=== PATIENT | male | born 1995 | race Caucasian/White ===

== ENCOUNTER 2017-02-26 17:50 | Inpatient (IN) | payer BC, OTHER ==
[~2017-02-26] VITALS: Ht 188 cm; Wt 73.5 kg
[2017-02-26 21:30] VITALS: BP 136/68
--- NOTE | 2017-02-26 21:30 | NUR ---
INTAKE ASSESSMENT BP:136/68, HR: 60, RR:16, SpO2: 97%, T: 98.1 Ht:6'2" Wt:162lbs Pt is in stable condition and able to be admitted on the unit. Unit protocols regarding medications and vital signs Q4H were explained to pt. Pt verbalized understanding. Will monitor.
[2017-02-26 21:49] LABS: *AMPHETAMINE, URINE NEGATIVE (NEGATIVE); *BARBITURATE, URINE NEGATIVE (NEGATIVE); *CANNABINOID, URINE NEGATIVE (NEGATIVE); *COCCAINE, URINE NEGATIVE (NEGATIVE); *OPIATE, URINE POSITIVE (NEGATIVE); *PHENCYCLIDINE SCREEN,URINE NEGATIVE (NEGATIVE)
--- NOTE | 2017-02-26 22:00 | NUR ---
ADMISSION NOTE COWS:2 Pt arrived ambulatory from [facility] Intake to the third floor accompanied by a [employer] TEACHER at 2140. Pt is a 21 year old male patient admitted on 02/26/17 for Opiate dependency. Pt is full code with NKA. Pt denies any past medical history and denies having a PCP. He smoked 1 pack of ciagarettes daily since 16 years old. He denies a history of seizure. Pt reports his last sobriety was for 9 months from April 16, 2016 to December 2016. He reports he was at treatment center [facility] in [place], [place] for 90 days. Pt verbalized he is here for Heroin withdrawal. He describes his current use as: 1. Heroin (smoking) 1 gram daily for 2 months Last dose: 1 gram on 02/26/17 at 11am. Pt describes his withdrawal symptoms as hot/cold sweats, body aches, nausea, vomiting and insomnia. Upon assessment, pt is alert and oriented x4. Pt is calm and cooperative, speech is clear and audible. Heart rate is regular, pt denies chest pain or SOB. PERRLA, breathing is even and unlabored, lung sounds clear. Abdomen is soft and non distended, bowel sounds present in all quadrants. Last BM 02/24/17. Pt reports BM is regular. Pt's skin is warm, dry and intact. made aware of pt's admission. Pt oriented to room and unit. Pt safe with bed locked in lowest position, side rails up x2 and call light within reach. Will continue to monitor.
[2017-02-26] MEDS ORDERED: MAG HYDROX/AL HYDROX/SIMETH 30 ML LIQUID UDC PO PRN (23:00)
[2017-02-26] MEDS ORDERED: ACETAMINOPHEN 325 MG TABLET PO PRN (23:00)
[2017-02-26] MEDS ORDERED: MIRALAX 17 GM POWD.PACK PO PRN (23:00)
[2017-02-26] MEDS ORDERED: BUPRENORPHINE HCL 2 MG TAB.SUBL SL PRN (23:00)
[2017-02-26] MEDS ORDERED: LOPERAMIDE HCL 2 MG CAPSULE PO PRN ×2 (23:00)
[2017-02-26] MEDS ORDERED: ONDANSETRON 4 MG/2 ML VIAL IM PRN (23:00)
[2017-02-26] MEDS ORDERED: MAGNESIUM HYDROXIDE 30 ML LIQUID UDC PO PRN (23:00)
[2017-02-26] MEDS ORDERED: DICYCLOMINE HCL 20 MG TABLET PO PRN (23:00)
[2017-02-26] MEDS ORDERED: ONDANSETRON ODT 4 MG TAB.RAPDIS SL PRN (23:00)
[2017-02-26] MEDS ORDERED: CLONIDINE HCL 0.1 MG TABLET ONE (23:06)
[2017-02-26] MEDS ORDERED: HYDROXYZINE PAMOATE 25 MG CAPSULE ONE (23:06)
[2017-02-26] MEDS: METHOCARBAMOL 750 MG TABLET PO PRN (23:06)
[2017-02-26] MEDS: CLONIDINE HCL 0.1 MG TABLET PO PRN (23:07)
[2017-02-26] MEDS: HYDROXYZINE PAMOATE 25 MG CAPSULE PO PRN (23:07)
--- NOTE | 2017-02-26 23:07 | NUR ---
PRN CLONIDINE/VISTARIL/ROBAXIN Pt complains of anxiety/agitation, restlessness and body aches /10. PRN Clonidine, Vistaril and Robaxin administered as ordered. Breathing is even and unlabored, respirations 16. Safety measures in place. Will monitor effectiveness of medications.
[2017-02-26] MEDS ORDERED: METHOCARBAMOL 750 MG TABLET ONE (23:11)
[2017-02-27] VITALS: BP 128/74
--- NOTE | 2017-02-27 00:07 | NUR ---
PRN CLONIDINE/VISTARIL/ROBAXIN REASSESSMENT PRN medications effective. Pt is lying in bed with eyes closed noted to be asleep. Respirations 16, breathing even and unlabored. Safety measures in place. Will continue to monitor.
[2017-02-27 00:11] LABS: BASOPHILS # (AUTO) 0.1 K/uL (0.0-8.0); EOSINOPHILS % (AUTO) 0.6 % (0.0-7.0); HEMOGLOBIN 14.9 G/DL (14.0-18.0); LYMPHOCYTES # (AUTO) 1.9 K/UL (0.8-4.8); LYMPHOCYTES % (AUTO) 34.9 % (20.5-51.5); MEAN CORPUSCULAR HEMOGLOBIN 29.7 UUG (27.0-31.0); MEAN CORPUSCULAR HGB CONC 33 g/dL (32.0-37.0); MONOCYTES # (AUTO) 0.4 K/UL (0.1-1.30); MONOCYTES % (AUTO) 7.2 % (0.0-11.0); NEUTROPHILS # (AUTO) 2.9 K/UL (1.8-8.9); NEUTROPHILS % (AUTO) 56.3 % (38.5-71.5); PLATELET COUNT (AUTO) 139 K/UL (150-450); RED BLOOD CELL COUNT(AUTO) 5.01 MIL/UL (4.7-6.1); WHITE BLOOD COUNT (AUTO) 5.3 K/UL (4.0-11.2)
[2017-02-27 00:14] LABS: ALANINE AMINOTRANSFERASE 19 U/L (16-63); ALKALINE PHOSPHATASE 55 U/L (50-136); AMYLASE 83 U/L (25-115); ASPARTATE AMINOTRANSFERASE 17 U/L (15-37); BILIRUBIN,TOTAL 0.3 mg/dL (0.2-1.0); CHLORIDE 103 mmol/L (98-107); CREATININE 0.9 mg/dL (0.6-1.3); GLUCOSE 110 mg/dL (74-106); LIPASE 176 U/L (73-393); MAGNESIUM 2.2 mg/dL (1.8-2.4); POTASSIUM 4.8 mmol/L (3.5-5.1); TOTAL PROTEIN, SERUM 7.1 g/dL (6.4-8.2)
[2017-02-27 00:16] LABS: ETHANOL < 3 MG/DL (0-0)
[2017-02-27 00:21] LABS: THYROID STIMULATING HORMONE 1.054 mIU/mL (0.358-3.740); UREA NITROGEN, BLOOD 15 mg/dL (7-18)
[2017-02-27 00:29] LABS: CARBON DIOXIDE 33 mmol/L (21-32)
[2017-02-27 04:00] VITALS: BP 115/78
--- NOTE | 2017-02-27 07:13 | NUR ---
END OF SHIFT Pt is a 21 year old male patient admitted on 02/26/17 for Heroin dependency. Pt is full code with NKA. At 2307 he received PRN Clonidine, Vistaril and Robaxin. He slept a total of 6 hrs, Intake:1350mL Void:x2 BM:0 COWS:2 Pt remains alert and oriented x4, breathing is even and unlabored. Pt is safe with bed locked in lowest position, side rails up x2 and call light within reach. Will endorse to oncoming shift.
--- NOTE | 2017-02-27 07:30 | NUR ---
Start of Shift Report from night nurse: pt is 21 y/o male new admission here for Opiate dependence r/t Heroin 1g smoked for 2 months; No taper ordered at this time. Pt is a full code, regular diet, NKA, fall precautions ordered. Pt is a smoker and denies PMH and no seizures. Pt has had relapse in 03/2016. V/S stable. Skin is intact. No home medications. PRN Clonidine, Vistaril and Robaxin given last night. No new orders or abnormal labs endorsed to me. Last COWS 2. Pt is asleep in room. Will cont. to monitor the pt.
[2017-02-27 08:00] VITALS: BP 122/64
[2017-02-27] MEDS ORDERED: TUBERCULIN,PURIF.PROT.DERIV. 5 TU/0.1 ML TEST ID ONE (09:00)
[2017-02-27] MEDS: MULTIVITAMINS,THERAPEUTIC TABLET PO SCH (09:28)
[2017-02-27] MEDS: IBUPROFEN 400 MG TABLET PO PRN (09:28)
[2017-02-27] MEDS: HYDROXYZINE PAMOATE 25 MG CAPSULE PO PRN ×2 (09:28→17:26)
--- NOTE | 2017-02-27 09:35 | NUR ---
PRN Medication Administration-Subutex Pt is in room next to bed and pacing with restless legs, is flushed, nasal congestion, anxious, clammy face, PERRLA 4 mm moderately dilated, c/o pain 10/10 generalized, V/S stable, COWS 13; PRN Subutex 4mg SL given w/n parameters, PRN Vistaril 50mg and PRN Motrin 400mg given at ordered. Will reassess in 1H.
--- NOTE | 2017-02-27 10:30 | NUR ---
Reassessment Pt is in room resting in bed with no anxiety, restlessness or irritability present, no nasal congestion and pt states that pain decreased from 10/10 to 0/10; PRN Vistaril, Subutex, and Motrin are effective. Will cont. to monitor the pt.
[2017-02-27 12:00] VITALS: BP 112/51
[2017-02-27] MEDS ORDERED: BENZOCAINE/MENTH/CETYLPYRD LOZENGE MM PRN (12:45)
--- NOTE | 2017-02-27 14:29 | NUR ---
Clinician encouraged client to come to group at 3:30. Client said he did not feel well and would not attend.
[2017-02-27] MEDS: GABAPENTIN 300 MG CAPSULE PO SCH ×2 (15:11→20:16)
[2017-02-27] MEDS: BUPRENORPHINE HCL 2 MG TAB.SUBL SL SCH ×2 (15:12→20:16)
[2017-02-27 16:00] VITALS: BP 102/57
--- NOTE | 2017-02-27 17:20 | NUR ---
PRN Medication Administration Pt is standing in the nolasco anxious and irritable; PRN Vistaril 50mg given as ordered and will reassess in 1H after dinner. Will cont. to monitor the pt.
[2017-02-27] MEDS: DOCUSATE SODIUM 100 MG CAPSULE PO SCH (17:26)
--- NOTE | 2017-02-27 18:20 | NUR ---
PRN Medication Reassessment Pt is resting in room and taking a nap; no s/sx of anxiety present; PRN Vistaril is effective. Will cont. to monitor the pt.
--- NOTE | 2017-02-27 18:48 | NUR ---
START OF SHIFT NOTE: Patient endorsed by day shift nurse in stable condition. Patient is a 21 year old male admitted to [facility] on 02/26/17 for Opiate Dependence, placed on 5 Day Subutex Taper since 02/27/17. Patient tolerated well. NKA, Regular Diet, Full Code, Fall Precautions. Patent denies History of Seizure. PMH: Anxiety, Depression, Substance Abuse, Tobacco Dependence. Patient denies Past Surgery History. Patient reports that he is recently has "second time detox/treatment". Previously, he has detox/treatment at "[facility]" in [place], [place] on March,". Patient reports he used heroin "smoke during last two months every day 1 gram. Last used one gram on 02/26/17 at 11:00". Upon endorsement, patient is in his room alert and oriented x4, speech is soft and clear. COWS 6: Patient c/o anxiety, nervousness agitation, body aches, and sweats. Patient denies N/V, and diarrhea. Patient denies SI/HI. VS WNL and stable through the day, by report of day shift nurse. Patient remains compliant with treatment plan, medications, and diet regimen. Patient attended groups activities. Encourage to fluids intake, as tolerated. Breathing is even and unlabored. Patient denies chest pain and SOB. Lungs Sounds are clear bilaterally. Bowel Sounds are active in all 4 quadrants. Last bowel Movement was "today, in the morning". Skin is intake, warm and dry. All needs met. Safety measures in the place by hospital policy: bed in the lowest position, and locked, bed rails up x2. Will continue to monitor closely.
--- NOTE | 2017-02-27 18:48 | NUR ---
End of Shift Report to night nurse: pt is 21 y/o male here for Opiate dependence r/t Heroin 1g smoked for 2 months; 5 day Subutex taper ordered and started during my shift at 1500pm. Pt is a full code, regular diet, NKA, fall precautions ordered. Pt is a smoker and denies PMH and no seizures. Pt has had relapse in 03/2016. V/S stable. Skin is intact with PPD test done on Right FA. PRN Subutex 4mg given this morning with CIWA 14 and Vistaril given twice during my shift with last dose at 1720pm. No chest pain or SOB noted. Pt refused to go to group so encouraged to go. No hallucinations, delusions, or suicidal ideations noted. Last COWS 6.
[2017-02-27 20:00] VITALS: BP 127/63
[2017-02-27] MEDS: diphenhydrAMINE 50 MG CAPSULE PO PRN (20:16)
[2017-02-28] VITALS: BP 98/51
[2017-02-28 04:00] VITALS: BP 104/61
[2017-02-28] MEDS: METHOCARBAMOL 750 MG TABLET PO PRN ×2 (05:06→13:50)
[2017-02-28] MEDS: HYDROXYZINE PAMOATE 25 MG CAPSULE PO PRN ×3 (05:07→16:42)
--- NOTE | 2017-02-28 05:07 | NUR ---
PRN VISTARIL 50 MG 2 TAB PO AND PRN ROBAXIN 750 MG TAB PO ADMINISTRATION Patient c/o increased anxiety and muscles spasm. Assessment done. COWS 7. Patient presented with withdrawal S/S of anxiety, agitation, nervousness, muscles spasm, body aches, and sweats. Patient denies N/V, and diarrhea. Patient denies SI/HI. VS WNL. PRN Vistaril PO and PRN Robaxin PO discussed with patient. Patient's educated for actions, adverse reactions, and side effects of Vistaril PO and Robaxin PO. Patient return his knowledge back by verbalized understanding. PRN Vistaril 50 mg 2 tab PO and PRN Robaxin 750 mg 1 tab PO administrated as ordered with full glass of water. Patient tolerated well. All needs met. Safety measures in the place by hospital policy: bed in the lowest position, and locked, bed rails up x2. Will monitor closely.
--- NOTE | 2017-02-28 06:07 | NUR ---
RE -ASSESSMENT Patient is sleeping. Breathing is even and unlabored. RR:15. PRN Vistaril PO and PRN Robaxin PO were effective. All needs met. Safety measures in the place by hospital policy: bed in the lowest position, and locked, bed rails up x2. Will continue to monitor closely.
--- NOTE | 2017-02-28 07:18 | NUR ---
END OF SHIFT NOTE: Patient endorsed to day shift nurse in stable condition. Report given. Patient is a 21 year old male admitted to [facility] on 02/26/17 for Opiate Dependence, placed on 5 Day Subutex Taper since 02/27/17. Patient tolerated well. NKA, Regular Diet, Full Code, Fall Precautions. Patent denies History of Seizure. PMH: Anxiety, Depression, Substance Abuse, Tobacco Dependence. Patient denies Past Surgery History. Patient reports heroin "smoke during last two months every day 1 gram. Last used one gram on 02/26/17 at 11:00". COWS at 04:00: 7. Patient presented with withdrawal S/S of anxiety, agitation, nervousness, muscles spasm, body aches, and sweats. Patient denies N/V, and diarrhea. Patient denies SI/HI. VS at 04:00: T: 97'9; BP: 104/61; HR: 68; RR: 15; O2 SAT: 97%. Patient c/o body aches "04/08". Patient attended groups activities. Encourage to fluids intake, as tolerated. Breathing is even and unlabored. Patient denies chest pain and SOB. Last Bowel Movement was "02/27/17, in the morning". Skin is intake, warm and moist by touch. PRN Vistaril 50 mg 2 tab PO and PRN Robaxin 750 mg 1 tab PO administrated as ordered. Patient tolerated well. Patient remains compliant with treatment plan, medications, and diet regimen. Patient slept 7 hours, intake 1,100 ml, voided x3. All needs met. Safety measures in the place by hospital policy: bed in the lowest position, and locked, bed rails up x2.
--- NOTE | 2017-02-28 07:20 | NUR ---
Start of Shift Report from night nurse with update: pt is 21 y/o male here for Opiate dependence r/t Heroin 1g smoked for 2 months; 5 day Subutex tape ordered. Pt is a full code, regular diet, NKA, fall precautions ordered. Pt is a smoker and denies PMH and no seizures. Pt has had relapse in 03/2016. V/S stable. Skin is intact. PRN's Vistaril and Robaxin given last night. No new orders or abnormal labs endorsed to me. Last COWS 7. Pt is asleep in room. Will cont. to monitor the pt.
[2017-02-28 08:00] VITALS: BP 112/53
[2017-02-28 08:06] LABS: HEPATITIS B SURFACE AG Negative (Negative)
[2017-02-28] MEDS ORDERED: BUPRENORPHINE HCL 2 MG TAB.SUBL SL SCH (09:00)
[2017-02-28] MEDS: IBUPROFEN 400 MG TABLET PO PRN ×2 (10:35→16:42)
[2017-02-28] MEDS: DOCUSATE SODIUM 100 MG CAPSULE PO SCH ×2 (10:36→16:42)
[2017-02-28] MEDS: MULTIVITAMINS,THERAPEUTIC TABLET PO SCH (10:36)
[2017-02-28] MEDS: GABAPENTIN 300 MG CAPSULE PO SCH ×3 (10:36→20:41)
--- NOTE | 2017-02-28 10:39 | NUR ---
PRN Medication Administration Pt is in nolasco pacing with anxiety and irritable, and c/o AZEVEDO; PRN Vistaril 50mg and PRN Motrin 400mg given as ordered. Will reassess in 1H.
--- NOTE | 2017-02-28 11:30 | NUR ---
Reassessment Pt is in room taking an nap since he refused to go to group therapy, no s/sx of anxiety or AZEVEDO noted; PRN Motrin and Vistaril are effective. Will cont. to monitor the pt.
[2017-02-28 12:00] VITALS: BP 140/77
[2017-02-28] MEDS: CLONIDINE HCL 0.1 MG TABLET PO PRN (13:50)
--- NOTE | 2017-02-28 13:50 | NUR ---
PRN Medication Administration Pt is in the nolasco pacing and c/o Muscle tension and anxiety; PRN Clonidine 0.1mg PO and Robaxin 750mg given as ordered. Will reassess in 1H.
--- NOTE | 2017-02-28 14:45 | NUR ---
Reassessment Pt in room taking a nap, no non-verbal cues or s/sx of anxiety, and muscle tension present; Clonidine and Robaxin are effective. Will cont. to monitor the pt.
[2017-02-28 16:00] VITALS: BP 99/55
[2017-02-28] MEDS: BUPRENORPHINE HCL 2 MG TAB.SUBL SL SCH ×2 (16:44→20:41)
--- NOTE | 2017-02-28 16:47 | NUR ---
PRN Medication Administration Pt wakes up from nap and c/o of anxiety with restless legs and agitation; PRN Vistaril 50nmg given as ordered. Will reassess in 1H. Addendum: 02/28/17 at 1652 by KALEIGH DOLAN RN Pt c/o generalized pain 6/10 so PRN Motrin 400mg given as ordered.
--- NOTE | 2017-02-28 17:20 | NUR ---
Reassessment Pt is getting ready to go down for dinner and states that his pain decreased to 3/10 and that he feels less anxious than earlier and more comfortable; PRN Vistaril and Motrin are effective. Will cont. to monitor the pt.
--- NOTE | 2017-02-28 18:59 | NUR ---
START OF SHIFT NOTE: Patient endorsed by day shift nurse at 18:59. Report received. Patient is a 21 year old male admitted to [facility] on 02/26/17 for Opiate (Heroin) Dependence, placed on 5 Day Subutex Taper since 02/27/17. Patient tolerated well. NKA, Regular Diet, Full Code, Fall Precautions. Patent denies History of Seizure. PMH: Anxiety, Depression, Substance Abuse, Tobacco Dependence. Upon endorsement, patient is in his room alert and oriented x4, speech is soft and clear. COWS 5. Patient c/o anxiety, muscles spasm, nervousness, agitation, body aches, and sweats. Patient denies N/V, and diarrhea. Patient denies SI/HI. VS WNL. Patient remains compliant with treatment plan, medications, and diet regimen. Patient attended groups activities. Breathing is even and unlabored. Patient denies chest pain and SOB. Lungs Sounds are clear bilaterally. Bowel Sounds are active in all 4 quadrants. Last bowel Movement was "02/28/17 at 10:00". Skin is intake, warm and moist by touch. All needs met. Safety measures in the place by hospital policy: bed in the lowest position, and locked, bed rails up x2. Will continue to monitor closely.
--- NOTE | 2017-02-28 19:19 | NUR ---
End of Shift Report to night nurse: pt is 21 y/o male here for Opiate dependence r/t Heroin 1g smoked for 2 months; 5 day Subutex taper ordered. Pt is a full code, regular diet, NKA, fall precautions ordered. Pt is a smoker and denies PMH and no seizures. Pt has had relapse in 03/2016. V/S stable. Skin is intact. Pt denies chest pain or SOB noted.PRN Vistaril & Motrin given twice with the last doses at 1650p, & Robaxin given at 1350p. No new orders for labs or orders during my shift. Pt refused to go to group so encouraged to go to group therapy and activities, yet pt took frequent intermittent naps. No hallucinations, delusions, or suicidal ideations noted. Last COWS 5.
--- NOTE | 2017-02-28 19:19 | NUR ---
START OF SHIFT NOTE: Patient endorsed by day shift nurse. Patient is a 22 year old male admitted to [facility] on 02/27/2017 for Benzodiazepines and Opioid dependence, placed on 4 Day modified Subutex Taper. Patient tolerated well. Patient reports "NKA". Patient placed on Full Code, Regular Diet, Fall and Seizures Precautions. Patient reports the following substances use: Heroin IV: "since 19 old". " Last three weeks 1 gram every day . Last used: "0.3 grams on 02/26/2017 at 22:00". Cocaine IV : " since 15 years old. During last three weeks 1 - 2 grams every day. Last used 0.5 gram on 02/27/2017 at 09:00". Patient smoking 5 cigarettes and used Vaper daily "since age 15". Patient reports Seizures Hx r/t withdrawal from substances on 02/24/2017. Patient is alert and oriented x 4. Patient is cooperative, friendly, and verbally appropriate. Last COWS 6. Patient c/o the following symptoms of withdrawal s/s : anxiety, agitation, nervousness, tremors, body aches, diaphoresis, abdominal cramps, mild headache, restlessness, sweats, and fatigue. Patient denies N/V and diarrhea. Patient longest period of sobriety was " 3 months:"October, - Jan, 2017". Patient states that he has been on Detox at "[facility] x2". Past Medical History: Anxiety, Depression, Substances use, Tobacco and Vaper smoking. Patient denies current OR HX. Home Medications: Neurontin ( Gabapentin) 800 mg three times every day PO. Last time taken on "02/27/2017 at 09:00". Quetiapine Fumarate (Seroquel) 50 mg daily HS, PO for Insomnia. Last time taken on "02/26/2017 at 22:00". Hydroxyzine Pamoate (Zoloft) 50 mg Q6H PRN PO for Anxiety. Last time taken on "02/26/2017 at 22:00". VS WNL. Patient c/o body aches "02/06". Breathing is even and unlabored. Patient denies SOB and chest pain. Last BM was "02/28/17 at 10:00". Skin is intact, warm and moist by touch. Patient attended groups therapies and activities. All needs met. Safety measures in place by hospital policy. Call light within reach, bed in the lowest position and lock, padded rails up x2. Addendum: 02/28/17 at 2212 by SALUD PAVON RN Wrong patient
[2017-02-28 20:00] VITALS: BP 127/67
[2017-02-28] MEDS: diphenhydrAMINE 50 MG CAPSULE PO PRN (20:41)
--- NOTE | 2017-02-28 20:41 | NUR ---
PRN BENADRYL 50 MG PO ADMINISTRATION Patient c/o insomnia and ask aid. Patient's assessed. VS WNL. PRN Benadryl 50 mg PO administrated as ordered with full glass of water. Patient tolerated well. All needs met. Safety measures in place by hospital policy. Call light within reach, bed in the lowest position and lock, padded rails up x2. Will continue to monitor closely.
--- NOTE | 2017-02-28 21:41 | NUR ---
RE - ASSESSMENT Patient is sleeping. Breathing is unlabored and even. RR: 14. PRN Benadryl PO was effective. All needs met. Safety measures in place by hospital policy. Call light within reach, bed in the lowest position and lock, padded rails up x2. Will continue to monitor closely. Addendum: 03/01/17 at 0147 by SALUD PAVON RN vilma
[2017-03-01] VITALS: BP 112/59
--- NOTE | 2017-03-01 04:00 | NUR ---
VS REFUSED AND COWS DEFERRED Patient refused to be woken up for 04:00 VS. COWS deferred d/t patient sleeping to assess while patient is awake. Safety measures on place by hospital policy: Call light within reach, bed in lowest position and locked, padded side rails up x2. Will continue to monitor.
--- NOTE | 2017-03-01 07:03 | NUR ---
END OF SHIFT NOTE: Patient is a 21 year old male admitted to [facility] on 02/26/17 for Opiate Dependence. Patient is on 5 Day Subutex Taper since 02/27/17, tolerated well. Patient has NKA, is on Regular Diet, and is Full Code. Patient is on Fall Precautions. Patent denies History of Seizure. COWS 4 at 00:00. Patient refused to be woken up for 04:00 VS. COWS deferred d/t patient sleeping. Patient presented with withdrawal S/S of anxiety, agitation, nervousness, body aches stomach cramps, and sweats. Patient denies SI/HI. VS WNL. Patient attended groups activities. Encourage to fluids intake, as tolerated. Respirations even and unlabored. Patient denies chest pain and SOB. Skin is intake, warm and moist by touch. PRN Benadryl 50 mg 1 caps. PO was effective. Patient remains compliant with treatment plan, medications, and diet regimen. Patient slept 8 hours, intake 2,000. All needs met. Safety measures in the place by hospital policy: bed in the lowest position, and locked, bed rails up x2.
[2017-03-01 08:00] VITALS: BP 97/61
--- NOTE | 2017-03-01 08:00 | NUR ---
START OF SHIFT NOTE Received patient this am Aox4. Patient states he feels "alright" this morning. He is on 5 day Subutex taper. TB test is to be read at 0900 this AM. Patient slept 8 hours. PRN Benadryl given per automobile body repair chief with effectiveness. COWS 4 at 0800 this morning. Encouraged patient to attend groups and activities this shift. Encouraged patient to increase fluid intake. WIll provide safe and supportive environment. WIll continue to monitor.
[2017-03-01] MEDS: DOCUSATE SODIUM 100 MG CAPSULE PO SCH ×2 (08:59→16:28)
[2017-03-01] MEDS: GABAPENTIN 300 MG CAPSULE PO SCH ×3 (08:59→20:29)
[2017-03-01] MEDS: BUPRENORPHINE HCL 2 MG TAB.SUBL SL SCH ×3 (08:59→20:29)
[2017-03-01] MEDS: MULTIVITAMINS,THERAPEUTIC TABLET PO SCH (08:59)
[2017-03-01] MEDS: HYDROXYZINE PAMOATE 25 MG CAPSULE PO PRN ×2 (11:06→18:46)
--- NOTE | 2017-03-01 11:10 | NUR ---
PRN MEDS Patient given PRN Vistaril for c/o anxiety. Will reassess
--- NOTE | 2017-03-01 11:45 | NUR ---
PRN REASSESSMENT Patient states he is not feeling anxious anymore. He is watching TV calmly in his room. Will continue to monitor
[2017-03-01 12:00] VITALS: BP 115/65
[2017-03-01 16:00] VITALS: BP 150/73
[2017-03-01] MEDS: METHOCARBAMOL 750 MG TABLET PO PRN (16:48)
--- NOTE | 2017-03-01 16:48 | NUR ---
PRN MEDS PRN ROBAXIN GIVEN FOR BODY ACHES 04/08. WILL REASSESS.
--- NOTE | 2017-03-01 16:56 | NUR ---
Therapist informed client of group times. Client did not attend group because he is tired.
--- NOTE | 2017-03-01 17:15 | NUR ---
PRN REASSESSMENT Patient gives a thumbs up and states he feels much better his pain is 0/10. Medication effective. will monitor
--- NOTE | 2017-03-01 18:31 | NUR ---
END OF SHIFT NOTE Patient continues on 5 day Subutex taper and tolerating well. TB test read at 0900 and was negative. PRN Vistaril and Robaxin given with effectiveness. Last COWS 5. Patient attended groups and activities and socialized with peers. All needs have been met. All safety measures in place. Patient currently resting in bed watching TV with bed locked and in lowest position and call izquierdo within reach. Will pass shift report to oncoming nurse.
--- NOTE | 2017-03-01 18:47 | NUR ---
PRN MEDS PRN Vistaril given per pt request. patient c/o anxiety. Patient going to attend group right now. Will endorse to night nurse to reassess
[2017-03-01 20:00] VITALS: BP 121/78
--- NOTE | 2017-03-01 20:00 | NUR ---
Start of Shift Pt is a 21 year old male admitted for Opiate dependence, placed on 5 day Subutex taper. Pt reported using Heroin 1g/daily. Pt denies PMH, NKA, regular diet, fall precautions - denies hx of seizures and full code. Upon assessment, pt reports anxiety, muscle aches in legs, flushing noted, skin clammy, respirations even/unlabored, denies SOB/chest pain, denies n/v/d, bowel sounds active x4, abdomen soft. Safety measures in place, call light within reach, side rails up x2, bed locked and in low position. Will continue to monitor. Addendum: 03/01/17 at 2146 by GUERRERO DONIS RN PRN Vistaril was administered at 1847 during day shift, upon assessment, pt verbalizes relief of anxiety. will continue to monitor.
[2017-03-01] MEDS: CLONIDINE HCL 0.1 MG TABLET PO PRN (22:54)
[2017-03-01] MEDS: diphenhydrAMINE 50 MG CAPSULE PO PRN (22:55)
--- NOTE | 2017-03-01 22:55 | NUR ---
PRN Administration Pt reported feeling anxious, chills, body aches, and difficulty falling asleep. Clonidine 0.1mg PRN and Benadryl 50mg PRN administered. Safety measures in place. Will continue to monitor.
--- NOTE | 2017-03-01 23:55 | NUR ---
PRN Reassessment Upon reassessment, pt is sleeping, eyes closed, respirations even/unlabored. Safety measures in place. Will continue to monitor.
[2017-03-02] VITALS: BP 102/54
--- NOTE | 2017-03-02 | NUR ---
Vital Signs BP 102/54, Pulse 73, respirations 18, SpO2 98%, temp 98.4, pain 0/10 COWS deferred d/t pt sleeping - to assess while pt is awake as ordered. Safety measures in place. Will continue to monitor.
[2017-03-02] MEDS: METHOCARBAMOL 750 MG TABLET PO PRN ×3 (00:50→17:35)
--- NOTE | 2017-03-02 00:50 | NUR ---
PRN Administration Pt reported muscle aches in back and lower legs. Robaxin 750mg PRN administered. Safety measure in place. Will continue to monitor.
--- NOTE | 2017-03-02 01:50 | NUR ---
PRN Reassessment Upon reassessment, pt is sleeping, respirations even/unlabored, no s/s of acute distress noted. Safety measures in place. Will continue to monitor.
[2017-03-02 04:00] VITALS: BP 101/59
--- NOTE | 2017-03-02 04:00 | NUR ---
Vital Signs BP 101/59, Pulse 58, respirations 14, SpO2 96%, temp 97.7, pain 0/10 COWS deferred d/t pt sleeping - to assess while pt is awake as ordered. Safety measures in place. Will continue to monitor.
--- NOTE | 2017-03-02 07:00 | NUR ---
End of Shift Pt is a 21 year old male admitted for Opiate dependence, placed on 5 day Subutex taper. Pt reported using Heroin 1g/daily. Pt denies PMH, NKA, regular diet, fall precautions - denies hx of seizures and full code. During shift, pt presented with anxiety, muscle aches in legs, flushing noted, skin clammy - scheduled taper medications administered, COWS 5. Clonidine 0.1mg, Robaxin 750mg PRN and Benadryl 50mg PRN administered for anxiety, chills, muscle aches and difficulty sleeping - effective. Pt slept for 7 hours, intake of 1000 ml PO and voids x2. Safety measures in place, call light within reach, side rails up x2, bed locked and in low position. Endorsed to day shift nurse.
--- NOTE | 2017-03-02 07:01 | NUR ---
Start of Shift Notes: Received patient in his/her room. Alert and oriented x 4. Able to make needs known. Respirations even and unlabored. No SOB noted. Skin warm and dry to touch. Abdomen soft and non-distended. BS (+) in all 4 quadrants. No complains of N/V/D or constipation noted. Voids independently. Ambulatory ad lior with steady gait. Patient is a 21 year old male admitted for opiate dependence who was placed on a 5-day Ativan taper as ordered. No adverse reactions noted. Denies any past medical hx. PRN Clonidine, Benadryl and Robaxin were given during the night. Last COWS 5. Slept for 7 hours. NKA. FULL CODE. Regular diet. On fall and seizure precautions. Educated patient on the current plan of care and the current medication regimen. Will encourage oral fluid intake and encouraged group participation to learn new skills to prevent relapse.
[2017-03-02 08:00] VITALS: BP 109/47
[2017-03-02] MEDS: GABAPENTIN 300 MG CAPSULE PO SCH ×4 (08:36→20:39)
[2017-03-02] MEDS: MULTIVITAMINS,THERAPEUTIC TABLET PO SCH (08:36)
[2017-03-02] MEDS: DOCUSATE SODIUM 100 MG CAPSULE PO SCH ×2 (08:36→17:35)
[2017-03-02] MEDS: HYDROXYZINE PAMOATE 25 MG CAPSULE PO PRN ×3 (08:37→21:31)
[2017-03-02] MEDS: CLONIDINE HCL 0.1 MG TABLET PO PRN ×2 (08:37→17:35)
--- NOTE | 2017-03-02 08:39 | NUR ---
Clonidine 0.1mg PO, Robaxin 750 mg PO and Vistaril 50 mg PO given: Patient noted with complain of chills, anxiety, sweats, muscle aches and pains 4/10. Non-pharmacological interventions were provided but did not help. Medicated patient with Clonidine 0.1mg PO, Robaxin 750 mg PO and Vistaril 50 mg PO as ordered. Will monitor for effectiveness.
[2017-03-02] MEDS ORDERED: BUPRENORPHINE HCL 2 MG TAB.SUBL SL SCH (09:00)
--- NOTE | 2017-03-02 09:39 | NUR ---
Re-assessment: Per patient, PRN Clonidine, Robaxin and Vistaril were effective in reducing chills, anxiety, hot flashes, anxiety and muscle aches and pains. PL 10/09.
[2017-03-02 12:00] VITALS: BP 105/52
--- NOTE | 2017-03-02 14:19 | NUR ---
Vistaril 50 mg PO given: Patient complained of increase anxiety due to the discharge process. Patient was redirected with non-pharmacological interventions but did not help. CO 99 while sitting. Medicated patient with Vistaril 50 mg PO as ordered. Will monitor for effectiveness.
--- NOTE | 2017-03-02 14:50 | NUR ---
1500 Gabapentin 600 mg PO not administered: Patient has scheduled Gabapentin 600 mg PO at this time. Gabapentin 300 mg PO was already given from the original order. Patient was informed but refused to take extra 300 mg PO at this time. Per patient, he will take it on the next scheduled dose. Education provided.
--- NOTE | 2017-03-02 15:19 | NUR ---
Re-assessment: Per patient, PRN Vistaril was mildly effective in reducing patient's anxiety.
[2017-03-02] MEDS ORDERED: HYDR-3895 PO (15:37)
[2017-03-02] MEDS ORDERED: METH-33 PO (15:37)
[2017-03-02] MEDS ORDERED: CLON0.1T14 PO (15:37)
[2017-03-02] MEDS ORDERED: GABA-534 PO (15:37)
[2017-03-02 16:00] VITALS: BP 112/55
--- NOTE | 2017-03-02 17:36 | NUR ---
Clonidine 0.1mg /Robaxin 750 mg PO: Patient states that he is currently feeling chills, hot flashes and sweats, as well as anxiety/agitation and generalized muscle aches and pains 01/07. Patient was encouraged to redirect self with non-pharmacological methods such as deep breathing exercises and relaxation but did not help. Medicated patient with Clonidine 0.1mg PO and Robaxin 750mg PO as ordered. Will monitor for effectiveness.
[2017-03-02 18:14] LABS: *AMPHETAMINE, URINE NEGATIVE (NEGATIVE); *COCCAINE, URINE NEGATIVE (NEGATIVE); *OPIATE, URINE POSITIVE (NEGATIVE)
[2017-03-02 18:28] LABS: *BARBITURATE, URINE NEGATIVE (NEGATIVE); *CANNABINOID, URINE NEGATIVE (NEGATIVE); *PHENCYCLIDINE SCREEN,URINE NEGATIVE (NEGATIVE)
--- NOTE | 2017-03-02 18:48 | NUR ---
End of Shift Notes: Patient is a 21 year old male admitted on 02/26/2017 for medically supervised detoxification from opiate. Denies any past medical hx. NKA. FULL CODE. Regular diet. Prior to admission, patient was using 1 gram of Heroin x 2 months. Denies any seizure hx. Placed on a 5-day Subutex taper and tolerating well. Patient completed his taper today and will be discharging tomorrow. VS monitored closely. No significant abnormalities noted. Withdrawal symptoms were closely monitored. Initial COWS 9, patient presented with chills, hot flashes, sweating, anxiety, fine tremors and muscle aches. Last COWS 4. Medicated patient with Vistaril 50 mg, Robaxin 750 mg and Clonidine 0.1mg PO at 0839 with help after 1 hour, then Vistaril again was given at 1419 for anxiety and Clonidine and Robaxin at 1736 for chills, sweats and generalized muscle aches and pains. Patient needs reassurance and redirection at all times. Per patient, Subutex has been helping him with his withdrawal symptoms. Compliant with care and treatment. Needs encouragement to socialize and attend group. All needs met and attended. Will continue to monitor closely.
[2017-03-02 20:00] VITALS: BP 120/53
--- NOTE | 2017-03-02 20:00 | NUR ---
Start of Shift Pt is a 21 year old male admitted for Opiate dependence, placed on 5 day Subutex taper - completed. Pt reported using Heroin 1g/daily. Pt denies PMH, NKA, regular diet, fall precautions - denies hx of seizures and full code. Upon assessment, pt reports anxiety d/t discharge scheduled for tomorrow, face flushed, respirations even/unlabored, denies SOB/chest pain, denies n/v/d, skin dry and intact, bowel sounds active x4, abdomen soft. Safety measures in place, call light within reach, side rails up x2, bed locked and in low position. Will continue to monitor.
[2017-03-02] MEDS: diphenhydrAMINE 50 MG CAPSULE PO PRN (21:30)
--- NOTE | 2017-03-02 21:30 | NUR ---
PRN Administration Pt reported feeling anxious and requested aid to help him sleep. Non-pharmacological methods ineffective. Vistaril 50mg PRN and Benadryl 50mg PRN administered. Safety measures in place. Will continue to monitor.
--- NOTE | 2017-03-02 22:30 | NUR ---
PRN Reassessment Upon reassessment, pt is in bed, sleeping, eyes closed, respirations even/unlabored, no acute s/s of distress noted. Safety measures in place. Will continue to monitor.
[2017-03-03] VITALS: BP 105/61
--- NOTE | 2017-03-03 | NUR ---
Vital Signs BP 105/61, Pulse 52, respirations 16, SpO2 97%, temp 97.8, pain 0/10 COWS deferred d/t pt sleeping - to assess while pt is awake as ordered. Safety measures in place. Will continue to monitor.
[2017-03-03] MEDS: METHOCARBAMOL 750 MG TABLET PO PRN (03:52)
--- NOTE | 2017-03-03 03:52 | NUR ---
PRN Administration Pt reported muscle/joint aches, requested relief. Robaxin 750mg PRN administered. Safety measures in place. Will continue to monitor.
[2017-03-03 04:00] VITALS: BP 93/59
--- NOTE | 2017-03-03 04:52 | NUR ---
PRN Reassessment Upon reassessment, pt is laying in bed, eyes closed, no s/s of acute distress noted, no verbal cues of discomfort, respirations even/unlabored. Safety measures in place. Will continue to monitor.
--- NOTE | 2017-03-03 07:00 | NUR ---
Start of Shift Pt is a 21 year old male admitted for Opiate dependence, placed on 5 day Subutex taper - completed. Pt reported using Heroin 1g/daily. Pt denies PMH, NKA, regular diet, fall precautions - denies hx of seizures and full code. During shift, pt presented with anxiety - scheduled Gabapentin 600mg administered along with Vistaril 50mg PRN. Benadryl 50mg PRN administered for sleep - effective. Robaxin 750mg PRN administered for body aches. Pt is scheduled for discharge tomorrow. Vital Signs stable, latest COWS 3, pt slept for 6 hours, intake of 1446 ml PO and voids x1. Safety measures in place, call light within reach, side rails up x2, bed locked and in low position. Endorsed to day shift nurse. Addendum: 03/03/17 at 0708 by GUERRERO DONIS RN END OF SHIFT
--- NOTE | 2017-03-03 07:30 | NUR ---
START OF SHIFT NOTE Received report from night nurse, 21 year old male admitted for Opiate dependence, Pt completed his 5 day Subutex taper tolerated well. Pt reported using Heroin 1g/daily. Pt denies PMH, NKA, regular diet, fall precautions - denies history of seizures and full code. Upon assessment, alert awake oriented x4 in stable condition, Breathing normal respirations even/unlabored, denies SOB/chest pain, denies n/v/d, skin dry and intact, bowel sounds active x4, abdomen soft. Safety measures in place, call light within reach, side rails up x2, bed locked and in low position. Will continue to monitor.
[2017-03-03 08:00] VITALS: BP 115/63
[2017-03-03] MEDS: MULTIVITAMINS,THERAPEUTIC TABLET PO SCH (08:35)
[2017-03-03] MEDS: GABAPENTIN 300 MG CAPSULE PO SCH (08:35)
[2017-03-03] MEDS: DOCUSATE SODIUM 100 MG CAPSULE PO SCH (08:35)
--- NOTE | 2017-03-03 09:24 | NUR ---
DISCHARGE NOTE Pt was admitted for Opioid dependence, Last COWS-0. VS are WNL. pt states that he has no pain pain discomfort or s/s of withdrawal at this time. Denies any thoughts of suicide. Pt states that he feels ready for discharge. Verbalized his understanding of the discharge instructions. Pt discharge instructions and valuables secured in duffle bag then given to [facility]IG[facility]. All belongings returned to pt. Pt ID band removed, pt ambulated off of the unit in stable condition.
== END 2017-03-03 09:24 | disposition other institution (70) | DRG 895 ==
LOC: SRC 21:08
PROVIDERS: ADMIT Internal Medicine; ATTEND Internal Medicine
PROC: HZ2ZZZZ Detoxification Services for Substance Abuse Treatment (ICD-10-PCS; principal; 2017-02-26)
PROC: HZ31ZZZ Individual Counseling for Substance Abuse Treatment, Behavioral (ICD-10-PCS; 2017-02-27)
DX: F11.23 Opioid dependence with withdrawal (principal); F15.10 Other stimulant abuse, uncomplicated; F13.10 Sedative, hypnotic or anxiolytic abuse, uncomplicated; F17.210 Nicotine dependence, cigarettes, uncomplicated
CPT/HCPCS: 36415; 80307; 80361; 83690; 83735; 84443; 85025; 86580; 86592; 86705; 86803; 87340; 87806; G0480; Q0163